=== PATIENT | male | born 1985 | race African-American/Black ===

== ENCOUNTER 2017-08-11 19:21 | Emergency (ER) | payer OTHER ==
[~2017-08-11] VITALS: Ht 172.7 cm; Wt 92.1 kg
[2017-08-11 20:45] VITALS: BP 131/98
== END 2017-08-11 20:46 | disposition home or self-care (01) ==
LOC: EME 19:21
PROC: 0H9KXZZ Drainage of Right Lower Leg Skin, External Approach (ICD-10-PCS; principal; 2017-08-11)
DX: S80.11XA Contusion of right lower leg, initial encounter (principal); X58.XXXA Exposure to other specified factors, initial encounter; Y99.0 Civilian activity done for income or pay; J45.909 Unspecified asthma, uncomplicated
CPT/HCPCS: 99281; 99285